=== PATIENT | male | born 1965 | race Caucasian/White ===

== ENCOUNTER → 2017-06-14 | Outpatient (CLI) | payer OTHER ==
[~2017-06-14] MED LIST: ASPIRIN EC325 MG PO; AUGMENTIN 875 M1 TA1 PO; COLACE100 MG PO; EPI EZ PEN1 MG/ML IM; IBUPROFEN800 MG PO; PEPCID20 MG PO; PERCOCET 325 MG1 TA7 PO; TRAMADOL HCL50 MG PO; ULTRAM50 MG PO; VALIUM2 MG PO; ZANAFLEX2 M1 PO; ZANAFLEX4 M1 PO
== END | disposition home or self-care (01) ==
LOC: RAD 13:47
DX: M47.896 Other spondylosis, lumbar region (principal); M51.36 Other intervertebral disc degeneration, lumbar region; M48.06 Spinal stenosis, lumbar region; M25.561 Pain in right knee

== ENCOUNTER 2017-09-26 11:40 | Emergency (ER) | payer OTHER ==
[~2017-09-26] VITALS: Ht 177.8 cm; Wt 87.5 kg
[2017-09-26] MEDS ORDERED: NAPROSYN500 MG PO (14:18)
[2017-09-26] MEDS ORDERED: CYCLOBENZAPRINE10 MG PO (14:18)
[2017-09-26] MEDS ORDERED: MEDROL DOSEPAK4 MG PO (14:18)
== END 2017-09-26 14:32 | disposition home or self-care (01) ==
LOC: ED 11:40
DX: M54.41 Lumbago with sciatica, right side (principal); F17.200 Nicotine dependence, unspecified, uncomplicated; F10.10 Alcohol abuse, uncomplicated; Z79.899 Other long term (current) drug therapy

== ENCOUNTER → 2018-04-11 | Outpatient (CLI) | payer OTHER ==
[~2018-04-11] MED LIST changes: +CYCLOBENZAPRINE10 MG PO; +MEDROL DOSEPAK4 MG PO; +NAPROSYN500 MG PO
== END | disposition home or self-care (01) ==
LOC: CARD 11:21
DX: Z51.81 Encounter for therapeutic drug level monitoring (principal); F90.0 Attention-deficit hyperactivity disorder, predominantly inattentive type; Z79.899 Other long term (current) drug therapy

== ENCOUNTER → 2018-10-13 | Outpatient (CLI) | payer OTHER ==
[~2018-10-13] MED LIST changes: +TRAZODONE50 MG PO; +XANAX0.5 MG PO; +ZOLOFT100 MG PO
--- NOTE | ~2018-10-13 | EKG ---
[place], [place] ELECTROCARDIOGRAM REPORT NAME: CHERYL SIMMONS UNIT #: [id number] ROOM: DOCTOR: MATT DRAFT REPORT BIRTHDATE: [address] [facility] Test Date: 2018-10-13 Test Time: 10:24:27 Pat Name: CHERYL SIMMONS Department: Room: Gender: Sql Report Writer: : 1965 Requested By: MAC MALDONADO Order Number: [id number] Reading MD: Measurements Intervals [place] Rate: 73 P: 71 NV: 164 QRS: 60 QRSD: 84 T: 57 QT: 370 QTc: 408 Interpretive Statements Sinus rhythm No previous ECG available for comparison CM:EKGRPT:ELECTROCARDIOGRAM REPORT [id number] MAC ARNDT DRAFT REPORT MAC MALDONADO DO
== END | disposition home or self-care (01) ==
LOC: RESCLI 09:42
DX: E78.00 Pure hypercholesterolemia, unspecified (principal); R07.2 Precordial pain; R07.89 Other chest pain; F32.9 Major depressive disorder, single episode, unspecified; G47.00 Insomnia, unspecified; F41.9 Anxiety disorder, unspecified; F17.210 Nicotine dependence, cigarettes, uncomplicated; E66.3 Overweight; R03.0 Elevated blood-pressure reading, without diagnosis of hypertension; Z79.899 Other long term (current) drug therapy; Z88.8 Allergy status to other drugs, medicaments and biological substances; Z71.6 Tobacco abuse counseling

== ENCOUNTER → 2018-10-18 | Outpatient (CLI) | payer OTHER ==
--- NOTE | 2018-10-18 09:30 | NUR ---
INFORMED CONSENT OBTAINED FOR AN EXERCISE CARDIOLITE STRESS TEST WITH DR. OG. RESTING EKG NSR WITH RARE PVC, SUPINE HT RT OF 73, WITH A BP OF 138/82. STANDING HT RT OF 79, AND A BP OF 122/84. PT COMPLETED 10:00 MINUTES OF A GREY PROTOCOL WITH COMPLETION OF 2 MINUTES INTO STAGE IV AT 4.2 MPH AND A 16% GRADE. REACHED A PEAK HT RT OF 148 WHICH IS 86% OF PREDICTED MAX WITH A PEAK BP OF 210/78. TEST TERMINATED DUE TO FATIGUE. DENIED CHEST PAIN. HAS A HIGH EXERCISE TOLERANCE. LAST RECOVERY HT RT OF 104, WITH A BP OF 168/64. TAKEN TO NUCLEAR IMAGING IN STABLE CONDITION.
== END | disposition home or self-care (01) ==
LOC: CARD 00:44
DX: R07.2 Precordial pain (principal)

== ENCOUNTER → 2018-10-20 | Outpatient (CLI) | payer OTHER | END | disposition home or self-care (01) | LOC: RESCLI 01:53 | DX: K21.9 Gastro-esophageal reflux disease without esophagitis (principal); F32.9 Major depressive disorder, single episode, unspecified; F41.9 Anxiety disorder, unspecified; G47.00 Insomnia, unspecified; E78.00 Pure hypercholesterolemia, unspecified; F17.210 Nicotine dependence, cigarettes, uncomplicated; Z88.8 Allergy status to other drugs, medicaments and biological substances ==

== ENCOUNTER → 2019-11-14 | Outpatient (CLI) | payer OTHER | END | disposition home or self-care (01) | LOC: RESCLI 10:56 | DX: K21.9 Gastro-esophageal reflux disease without esophagitis (principal); B97.89 Other viral agents as the cause of diseases classified elsewhere; J06.9 Acute upper respiratory infection, unspecified; E66.9 Obesity, unspecified; R03.0 Elevated blood-pressure reading, without diagnosis of hypertension ==

== ENCOUNTER → 2020-04-11 | Outpatient (CLI) | payer OTHER | END | disposition home or self-care (01) | LOC: COVID19 12:39 | DX: Z03.818 Encounter for observation for suspected exposure to other biological agents ruled out (principal) ==

== ENCOUNTER → 2020-10-25 | Outpatient (CLI) | payer OTHER | END | disposition home or self-care (01) | LOC: COVID19 13:24 | PROVIDERS: ATTEND Student in an Organized Health Care Education/Training Program | DX: Z20.828 Contact with and (suspected) exposure to other viral communicable diseases (principal) ==

== ENCOUNTER 2021-04-21 14:21 | Emergency (ER) | payer OTHER ==
[~2021-04-21] VITALS: Ht 177.8 cm; Wt 90.7 kg
[2021-04-21] MEDS ORDERED: HYDROCODONE-AC1 EAC1 PO (16:18)
[2021-04-21] MEDS ORDERED: IBUPROFEN600 MG PO (16:18)
== END 2021-04-21 16:19 | disposition home or self-care (01) ==
LOC: ED 14:21
DX: S63.641A Sprain of metacarpophalangeal joint of right thumb, initial encounter (principal); Z98.890 Other specified postprocedural states; X58.XXXA Exposure to other specified factors, initial encounter; Y93.89 Activity, other specified; Y92.89 Other specified places as the place of occurrence of the external cause; Y99.8 Other external cause status

== ENCOUNTER → 2021-04-24 | Outpatient (CLI) | payer OTHER ==
[~2021-04-24] MED LIST changes: +HYDROCODONE-AC1 EAC1 PO; +IBUPROFEN600 MG PO; +PRILOSEC20 M1 PO
== END | disposition home or self-care (01) ==
LOC: RESCLI 06:38
PROVIDERS: ATTEND Internal Medicine
DX: M79.644 Pain in right finger(s) (principal); K21.9 Gastro-esophageal reflux disease without esophagitis; E78.00 Pure hypercholesterolemia, unspecified; Z79.899 Other long term (current) drug therapy; Z98.890 Other specified postprocedural states

== ENCOUNTER → 2021-05-15 | Day surgery (SDC) | payer OTHER ==
[~2021-05-15] VITALS: Ht 177.8 cm; Wt 98.9 kg
[2021-05-15 10:53] VITALS: BP 146/111
[2021-05-15 12:46] VITALS: BP 155/88
[2021-05-15 15:27] VITALS: BP 110/78
[2021-05-15 15:42] VITALS: BP 154/94
[2021-05-15 15:57] VITALS: BP 139/84
== END | disposition home or self-care (01) ==
LOC: SDC 10:24
PROVIDERS: ATTEND Orthopaedic Surgery
DX: M65.311 Trigger thumb, right thumb (principal); M24.341 Pathological dislocation of right hand, not elsewhere classified; M65.841 Other synovitis and tenosynovitis, right hand; M19.041 Primary osteoarthritis, right hand; F32.9 Major depressive disorder, single episode, unspecified; F41.9 Anxiety disorder, unspecified; E78.00 Pure hypercholesterolemia, unspecified; G47.00 Insomnia, unspecified; K21.9 Gastro-esophageal reflux disease without esophagitis; Z79.899 Other long term (current) drug therapy; Z98.890 Other specified postprocedural states

== ENCOUNTER → 2022-07-07 | Outpatient (CLI) | payer OTHER ==
[2022-07-07 10:49] LABS: BASO # 0.1 10*3/uL (0.0-0.1); BASO % 0.7 % (0.0-1.0); EOS # 0.2 10*3/uL (0.0-0.4); EOS % 2.5 % (1.0-4.0); HEMATOCRIT 35.6 % (42.0-52.0); LYMPH % 14.5 % (27.0-41.0); MEAN CELL VOLUME 88.3 fl (80.0-94.0); MEAN CORPUSCULAR HGB 28.3 pg (27.0-31.0); MEAN PLATELET VOLUME 8.5 fl (9.6-12.3); MONO # 0.7 10*3/uL (0.1-1.0); MONO % 9.1 % (3.0-9.0); NEUT # 5.2 10*3/uL (2.3-7.9); NEUT % 72.8 % (47.0-73.0); PLATELET COUNT AUTOMATED 559 10*3/uL (130-400); RED BLOOD COUNT 4.03 10*6/uL (4.50-5.90); RED CELL DISTRI WIDTH 13.8 % (0-14.5); WHITE BLOOD COUNT 7.2 10*3/uL (4.8-10.8)
[2022-07-07 11:13] LABS: ALKALINE PHOSPHATASE 172 U/L (45-117); BUN 26 mg/dl (7-24); CHLORIDE 106 mmol/L (98-107); CREATININE 1.14 mg/dL (0.70-1.30); POTASSIUM 4.4 mmol/L (3.5-5.1); SGOT/AST 12 IU/L (3-35); SGPT/ALT 30 U/L (12-78); SODIUM 140 mmol/L (136-145); TOTAL PROTEIN 7.5 gm/dL (6.4-8.2)
== END | disposition home or self-care (01) ==
LOC: RESCLI 09:17
PROVIDERS: Internal Medicine; ATTEND Student in an Organized Health Care Education/Training Program
DX: E04.9 Nontoxic goiter, unspecified (principal); K21.9 Gastro-esophageal reflux disease without esophagitis; F32.9 Major depressive disorder, single episode, unspecified; E78.00 Pure hypercholesterolemia, unspecified; F41.9 Anxiety disorder, unspecified; Z87.891 Personal history of nicotine dependence; Z98.890 Other specified postprocedural states; Z79.899 Other long term (current) drug therapy

== ENCOUNTER → 2022-09-06 | Outpatient (CLI) | payer OTHER | END | disposition home or self-care (01) | LOC: US 12:09 | PROVIDERS: ATTEND Internal Medicine | DX: E04.9 Nontoxic goiter, unspecified (principal) ==

== ENCOUNTER → 2023-04-30 | Outpatient (CLI) | payer BC ==
[2023-04-30 09:35] LABS: ALKALINE PHOSPHATASE 105 U/L (46-116); CHOLESTEROL 201 mg/dL (<200); FREE T4 1.15 ng/dl (0.89-1.76); LDL CHOLESTEROL 134 mg/dL (9-159); SGPT/ALT 23 U/L (10-49); TOTAL PROTEIN 6.7 gm/dL (6.0-8.0); TRIGLYCERIDES 129 mg/dl (<150)
[2023-05-02 12:07] LABS: THYROID PEROXIDASE (TPO) AB 12 IU/mL (0-34)
[2023-05-02 17:06] LABS: THYROGLOBULIN ANTIBODY <1.0 IU/mL (0.0-0.9)
[2023-05-03 16:08] LABS: THYROID STIM IMMUNOGLOBULIN <0.10 IU/L (0.00-0.55)
== END | disposition home or self-care (01) ==
LOC: LAB 08:32
PROVIDERS: ATTEND Internal Medicine
DX: E78.5 Hyperlipidemia, unspecified (principal); E55.9 Vitamin D deficiency, unspecified; E04.9 Nontoxic goiter, unspecified; R53.83 Other fatigue; H05.20 Unspecified exophthalmos

== ENCOUNTER 2023-12-28 06:55 | Emergency (ER) | payer BC ==
[~2023-12-28] VITALS: Wt 93.0 kg
[2023-12-28] MEDS ORDERED: IBUPROFEN 800 MG TAB PO ONE (07:30)
[2023-12-28] MEDS ORDERED: Acetaminophen/Oxycodone 5 MG/325 MG TABLET PO ONE (07:30)
[2023-12-28] MEDS ORDERED: Bacitracin Zinc 14 GM TUBE T ONE (08:25)
[2023-12-28] MEDS ORDERED: EPINEPHrine/Lidocaine Hydroc 20 ML VIAL SC ONE (08:25)
[2023-12-28] MEDS ORDERED: PERCOCET 5-3251 EACH PO (08:55)
[2023-12-28] MEDS ORDERED: Motrin,Rufen800 MG PO (08:55)
== END 2023-12-28 09:22 | disposition home or self-care (01) ==
LOC: ED 06:55
DX: S52.132A Displaced fracture of neck of left radius, initial encounter for closed fracture (principal); S00.81XA Abrasion of other part of head, initial encounter; S09.8XXA Other specified injuries of head, initial encounter; R05.9 Cough, unspecified; Z91.030 Bee allergy status; Z98.890 Other specified postprocedural states; W01.198A Fall on same level from slipping, tripping and stumbling with subsequent striking against other object, initial encounter; Y93.39 Activity, other involving climbing, rappelling and jumping off; Y92.009 Unspecified place in unspecified non-institutional (private) residence as the place of occurrence of the external cause; Y99.8 Other external cause status

== ENCOUNTER → 2024-01-09 | Outpatient (CLI) | payer BC ==
[~2024-01-09] MED LIST changes: +Motrin,Rufen800 MG PO; +PERCOCET 5-3251 EACH PO
== END | disposition home or self-care (01) ==
LOC: ORTHO 00:37
PROVIDERS: ATTEND Orthopaedic Surgery
DX: S52.132D Displaced fracture of neck of left radius, subsequent encounter for closed fracture with routine healing (principal); X58.XXXD Exposure to other specified factors, subsequent encounter

== ENCOUNTER → 2024-01-25 | Outpatient (CLI) | payer BC | END | disposition home or self-care (01) | LOC: ORTHO 01:21 | PROVIDERS: ATTEND Orthopaedic Surgery | DX: S52.135D Nondisplaced fracture of neck of left radius, subsequent encounter for closed fracture with routine healing (principal); X58.XXXD Exposure to other specified factors, subsequent encounter ==

== ENCOUNTER → 2024-02-01 | Outpatient (CLI) | payer BC | END | disposition home or self-care (01) | LOC: ORTHO 03:33 | PROVIDERS: ATTEND Orthopaedic Surgery | DX: S52.135D Nondisplaced fracture of neck of left radius, subsequent encounter for closed fracture with routine healing (principal); X58.XXXD Exposure to other specified factors, subsequent encounter ==

== ENCOUNTER → 2024-02-22 | Outpatient (CLI) | payer BC | END | disposition home or self-care (01) | LOC: ORTHO 02:56 | PROVIDERS: ATTEND Orthopaedic Surgery | DX: S52.135D Nondisplaced fracture of neck of left radius, subsequent encounter for closed fracture with routine healing (principal); X58.XXXD Exposure to other specified factors, subsequent encounter ==

== ENCOUNTER → 2024-03-21 | Outpatient (CLI) | payer BC | LOC: ORTHO 02:27 | PROVIDERS: ATTEND Orthopaedic Surgery | DX: S52.135D Nondisplaced fracture of neck of left radius, subsequent encounter for closed fracture with routine healing (principal); X58.XXXA Exposure to other specified factors, initial encounter; Y93.89 Activity, other specified; Y92.89 Other specified places as the place of occurrence of the external cause; Y99.8 Other external cause status ==

== ENCOUNTER → 2024-05-02 | Outpatient (CLI) | payer BC | END | disposition home or self-care (01) | LOC: ORTHO 01:04 | PROVIDERS: ATTEND Orthopaedic Surgery | DX: S52.135D Nondisplaced fracture of neck of left radius, subsequent encounter for closed fracture with routine healing (principal); X58.XXXD Exposure to other specified factors, subsequent encounter ==

== ENCOUNTER → 2024-05-21 | Outpatient (CLI) | payer BC | END | disposition home or self-care (01) | LOC: ORTHO 02:04 | PROVIDERS: ATTEND Orthopaedic Surgery | DX: S52.135D Nondisplaced fracture of neck of left radius, subsequent encounter for closed fracture with routine healing (principal); X58.XXXD Exposure to other specified factors, subsequent encounter ==

== ENCOUNTER → 2024-05-31 | Outpatient (CLI) | payer BC | END | disposition home or self-care (01) | LOC: US 14:59 | PROVIDERS: ATTEND Orthopaedic Surgery | DX: S52.135 Nondisplaced fracture of neck of left radius (principal); X58.XXXD Exposure to other specified factors, subsequent encounter ==

== ENCOUNTER → 2024-06-08 | Outpatient (CLI) | payer BC | END | disposition home or self-care (01) | LOC: CT 06-01 01:42 | PROVIDERS: ATTEND Orthopaedic Surgery | DX: S52.135 Nondisplaced fracture of neck of left radius (principal); X58.XXXD Exposure to other specified factors, subsequent encounter ==

== ENCOUNTER → 2024-06-21 | Day surgery (SDC) | payer BC ==
[2024-06-21] VITALS (10 sets, daily range): BP systolic 129–175; BP diastolic 75–112
[~2024-06-21] VITALS: Ht 177.8 cm; Wt 95.3 kg
[~2024-06-21] MED LIST changes: +BUPIVACAINE 0.5% 30 ML IV ONE; +Dexamethasone Sodium Phospha 4 MG/ML VIAL IV ONE; +HYDROmorphONE Hydrochloride 0.5 MG/0.5 ML SYRINGE IV ONE; +HYDROmorphONE Hydrochloride 0.5 MG/0.5 ML SYRINGE IV SCH; +HYDROmorphONE Hydrochloride 0.5 MG/0.5 ML SYRINGE ONE; +Ketamine Hydrochloride 500 MG/10 ML VIAL IV ONE; +Lactated Ringer's Solution 1,000 ML IV ONE; +Lidocaine Hydrochloride 2% 5 ML SDV IV ONE; +Lidocaine Hydrochloride 2% 5 ML SDV ONE; +Midazolam Hydrochloride 2 MG/2 ML VIAL IV ONE; +OXYCODONE-ACET1 EAC3 PO; +Ondansetron Hydrochloride 4 MG/2 ML VIAL IV ONE; +PROPOFOL 200 MG/20 ML VIAL IV ONE; +Ropivacaine Hydrochloride 5 MG/ML 20 ML AMP IJ ONE; +SEVOFLURANE 250 ML BOT INH ONE; +ceFAZolin sodium 2GM/20ML IV ONE; +ceFAZolin sodium/sodium chlor 20 ML IV ONE; +fentaNYL CITRATE 100 MCG/2 ML VIAL IV ONE; +hydrALAZINE hydrochloride 20 MG/ML VIAL IV ONE; +hydrALAZINE hydrochloride 20 MG/ML VIAL ONE
[2024-06-21 07:10] LABS: BUN 16 mg/dl (9-23); CHLORIDE 106 mmol/L (98-107); POTASSIUM 3.7 mmol/L (3.4-5.1)
== END | disposition home or self-care (01) ==
LOC: SDC 06-19 08:00
PROVIDERS: ATTEND Orthopaedic Surgery
DX: S52.132 Displaced fracture of neck of left radius (principal); G89.18 Other acute postprocedural pain; G47.30 Sleep apnea, unspecified; F17.210 Nicotine dependence, cigarettes, uncomplicated; F10.90 Alcohol use, unspecified, uncomplicated; F12.90 Cannabis use, unspecified, uncomplicated; Z91.030 Bee allergy status; Z79.899 Other long term (current) drug therapy; Z98.890 Other specified postprocedural states; X58.XXXD Exposure to other specified factors, subsequent encounter

== ENCOUNTER → 2024-06-27 | Outpatient (CLI) | payer BC ==
[~2024-06-27] MED LIST changes: -BUPIVACAINE 0.5% 30 ML IV ONE; -Dexamethasone Sodium Phospha 4 MG/ML VIAL IV ONE; -HYDROmorphONE Hydrochloride 0.5 MG/0.5 ML SYRINGE IV ONE; -HYDROmorphONE Hydrochloride 0.5 MG/0.5 ML SYRINGE IV SCH; -HYDROmorphONE Hydrochloride 0.5 MG/0.5 ML SYRINGE ONE; -Ketamine Hydrochloride 500 MG/10 ML VIAL IV ONE; -Lactated Ringer's Solution 1,000 ML IV ONE; -Lidocaine Hydrochloride 2% 5 ML SDV IV ONE; -Lidocaine Hydrochloride 2% 5 ML SDV ONE; -Midazolam Hydrochloride 2 MG/2 ML VIAL IV ONE; -Ondansetron Hydrochloride 4 MG/2 ML VIAL IV ONE; -PROPOFOL 200 MG/20 ML VIAL IV ONE; -Ropivacaine Hydrochloride 5 MG/ML 20 ML AMP IJ ONE; -SEVOFLURANE 250 ML BOT INH ONE; -ceFAZolin sodium 2GM/20ML IV ONE; -ceFAZolin sodium/sodium chlor 20 ML IV ONE; -fentaNYL CITRATE 100 MCG/2 ML VIAL IV ONE; -hydrALAZINE hydrochloride 20 MG/ML VIAL IV ONE; -hydrALAZINE hydrochloride 20 MG/ML VIAL ONE
== END | disposition home or self-care (01) ==
LOC: ORTHO 01:40
PROVIDERS: ATTEND Orthopaedic Surgery
DX: S52.135D Nondisplaced fracture of neck of left radius, subsequent encounter for closed fracture with routine healing (principal); X58.XXXD Exposure to other specified factors, subsequent encounter

== ENCOUNTER → 2024-08-13 | Outpatient (CLI) | payer BC | END | disposition home or self-care (01) | LOC: ORTHO 02:32 | PROVIDERS: ATTEND Orthopaedic Surgery | DX: S52.135D Nondisplaced fracture of neck of left radius, subsequent encounter for closed fracture with routine healing (principal); X58.XXXD Exposure to other specified factors, subsequent encounter ==

== ENCOUNTER → 2024-08-28 | Outpatient (CLI) | payer BC | END | disposition home or self-care (01) | LOC: US 07:56 | PROVIDERS: ATTEND Family Medicine | DX: R22.1 Localized swelling, mass and lump, neck (principal) ==

== ENCOUNTER → 2024-09-24 | Outpatient (CLI) | payer BC | END | disposition home or self-care (01) | LOC: ORTHO 02:00 | PROVIDERS: ATTEND Orthopaedic Surgery | DX: S52.135 Nondisplaced fracture of neck of left radius (principal); Z96.622 Presence of left artificial elbow joint; X58.XXXD Exposure to other specified factors, subsequent encounter ==